=== PATIENT | male | born 1955 | race Caucasian/White ===

== ENCOUNTER → 2019-01-20 | Outpatient (CLI) | payer OTHER ==
[~2019-01-20] MED LIST: ALFUZOSIN HCL10 MG PO; AVODART0.5 MG PO
--- NOTE | 2019-01-20 09:20 | Diagnostic Imaging Report ---
MRI of the left shoulder without contrast. History: Shoulder pain. Decreased range of motion. Rotator cuff tear. Pain not responding to conservative management Comparison: None Technique: Coronal PD FS, sagital PD FS, and axial PD and PD FS. Findings: Rotator cuff: Rotator cuff tendinosis with midsubstance degeneration and mild articular sided fraying/partial tearing involving the anterior fibers of the supraspinatus and infraspinatus tendons at the humeral insertion site. Additionally, there is subscapularis tendinosis. The teres minor tendon is intact. There are reactive changes in the superior humerus. Osseous acromion complex: Type II acromion with mild lateral downsloping. Mild degenerative arthrosis at the acromioclavicular joint with mild narrowing of the supraspinatus tendon outlet. Glenohumeral joint: Superior labral tear extending from anterior to posterior. Additionally, there is tearing of the posterior inferior labrum with an adjacent 1.5 cm lobulated paralabral cyst best seen on coronal image 17. The articular cartilage surfaces are thinned with regions of fraying and fissuring. Small peripheral marginal osteophytes. Effusion/synovitis in the rotator interval and subcoracoid space with 0.8 cm calcified loose body best seen on sagittal image 17. The humeral head is well-seated in the glenoid fossa. Biceps tendon: Intra-articular biceps tendinosis with draining at the biceps anchor. Other findings: Negative for muscle denervation or osseous fracture. Impression: Rotator cuff tendinosis with midsubstance degeneration and mild articular sided fraying/partial tearing involving the anterior fibers of the supraspinatus and infraspinatus tendons at the humeral insertion site. Superior labral tear extending from anterior to posterior. Additionally, there is tearing of the posterior inferior labrum with an adjacent 1.5 cm lobulated paralabral cyst. Effusion/synovitis in the rotator interval and subcoracoid space with 0.8 cm calcified loose body Intra-articular biceps tendinosis with draining at the biceps anchor. Signed by: Dr. Maciej Watts M.D. on 01/20/2019 9:17 AM
== END ==
LOC: MRI 08:08
PROVIDERS: ATTEND Specialist
DX: M75.102 Unspecified rotator cuff tear or rupture of left shoulder, not specified as traumatic (principal)

== ENCOUNTER → 2019-02-02 | Day surgery (SDC) | payer OTHER ==
[~2019-02-02] MED LIST changes: +ACETAMINOPHEN 1000 MG/100 ML IV ONE; +CEFAZOLIN SOD 1 GM/NS 50ML 100 ML IV ONE; +DESFLURANE 240 ML BTL INH ONE; +EPHEDRINE SULFATE INJ 50 MG/10 ML SYR ONE; +EPINEPHRINE 1 MG/ML 30ML VIAL ONE; +FENTANYL CITRATE/PF 100MCG/2 ML INJ ONE; +GLYCOPYRROLATE INJ 1MG/ 5 ML SYR ONE; +LIDOCAINE 2% /EPINEPHRINE 20 ML SDV INJ ONE; +LIDOCAINE HCL 2% LOCAL INJ 5 ML SDV VIAL INJ ONE; +MIDAZOLAM HCL 2 MG/2 ML VIAL ONE; +NEOSTIGMINE 5 MG/5ML SYR ONE; +ONDANSETRON HCL INJ 2MG/ML 2ML 2 MG/ML VIAL ONE; +PROPOFOL IV EMULSION 10 MG/ML 20 ML VIAL ONE; +ROCURONIUM BROMIDE 10 MG/ML 5ML VIAL ONE; +ROPIVACAINE 0.5% 5 MG/ML 30 ML SDV ONE
--- OUTSIDE RECORDS SUMMARY | 2019-02-02 05:31 | XMS REPORT | Clinical Summary ---
Author Author [facility] Organization [facility] Address Unknown Phone Unavailable Care Team Providers Care Systems Specialist Name Role Phone Asked, No Pcp PCP Unavailable Allergies No Known Allergies Medications Not on file Active Problems Not on file Social History Date Tobacco Use Types Packs/Day Years Used Never Assessed Sex Assigned at Date Recorded Not on file Industry Job Start Date Occupation Not on file Not on file Not on file Travel End Travel History Travel Start No recent travel history available. Last Filed Vital Signs Not on file Plan of Treatment Health Maintenance Due Date Last Done Comments COLONOSCOPY SCREENING 2004 SHINGLES VACCINES (#1) 2004 INFLUENZA VACCINE 01/27/2019 Results Not on fileafter 02/01/2018 Insurance Type Payer Benefit Subscriber ID Effective Phone Address Plan / Dates Group PPO BCBS BCBS OUT xxxxxxxxxxxx 2015-P OF STATE resent [phone] (Work) Advance Directives Patient has advance care planning documents on file. For more information, farrah e contact: Igor Buchanan [address] [place] [address]
--- OUTSIDE RECORDS SUMMARY | 2019-02-02 05:31 | XMS REPORT ---
Author [facility] Address Unknown Phone Unavailable Care Team Providers Care Banquet Set Up Person Name Role Phone VIRGINIA HAYNES Unavailable Unavailable Problems This patient has no known problems. Allergies, Adverse Reactions, Alerts This patient has no known allergies or adverse reactions. Medications This patient has no known medications. Results Test Description Test Time Test Comments Text Results Atomic Results Result Comments MRI SHOULDER LEFT WO 2019-01-20 09:11:00 [place] [address] Patient Name: YONNY GAUTAM MR #: [id number] : 1955 Age/Sex: 63/M Req #: [id number] Adm Physician: Ordered by: VIRGINIA HAYNES MD Report #: [id number] Location: MRI Room/Bed: Procedure: [id number] MRI/MRI SHOULDER LEFT WO Exam Date: Exam Time: REPORT STATUS: Signed MRI of the left shoulder without contrast. History: Shoulder pain. Decreased range of motion. Rotator cuff tear. Pain not responding to conservative management Comparison: None Technique: Coronal PD FS, sagital PD FS, and axial PD and PD FS. Findings: Rotator cuff: Rotator cuff tendinosis with midsubstance degeneration and mild articular sided fraying/partial tearing involving the anterior fibers of the supraspinatus and infraspinatus tendons at the humeral insertion site. Additionally, there is subscapularis tendinosis. The teres minor tendon is intact. There are reactive changes in the superior humerus. Osseous acromion complex: Type II acromion with mild lateral downsloping. Mild degenerative arthrosis at the acromioclavicular joint with mild narrowing of the supraspinatus tendon outlet. Glenohumeral joint: Superior labral tear extending from anterior to posterior. Additionally, there is tearing of the posterior inferior labrum with an adjacent 1.5 cm lobulated paralabral cyst best seen on coronal image 17. The articular cartilage surfaces are thinned with regions of fraying and fissuring. Small peripheral marginal osteophytes. Effusion/synovitis in the rotator interval and subcoracoid space with 0.8 cm calcified loose body best seen on sagittal image 17. The humeral head is well-seated in the glenoid fossa. Biceps tendon: Intra-articular biceps tendinosis with draining at the biceps anchor. Other findings: Negative for muscle denervation or osseous fracture. Impression: Rotator cuff tendinosis with midsubstance degeneration and mild articular sided fraying/partial tearing involving the anterior fibers of the supraspinatus and infraspinatus tendons at the humeral insertion site. Superior labral tear extending from anterior to posterior. Additionally, there is tearing of the posterior inferior labrum with an adjacent 1.5 cm lobulated paralabral cyst. Effusion/synovitis in the rotator interval and subcoracoid space with 0.8 cm calcified loose body Intra-articular biceps tendinosis with draining at the biceps anchor. Signed by: Dr. Maciej Watts M.D. on 01/20/2019 9:17 AM Dictated By: MACIEJ WATTS MD, MD 6 Transcribed By: MARIKA on 01/20/19916 COPY TO: VIRGINIA HAYNES MD
[2019-02-02 10:40] VITALS: BP 115/76
--- NOTE | 2019-02-04 00:13 | Operative Report ---
DATE OF PROCEDURE: 02/02/2019 SURGEON: Wilfrido Pulido MD PREOPERATIVE DIAGNOSES: Left shoulder labral tear and left shoulder AC joint arthritis. POSTOPERATIVE DIAGNOSES: Left shoulder labral tear, left shoulder AC joint arthritis, left shoulder synovitis, left shoulder partial rotator cuff tear, and left shoulder chondromalacia of the glenoid. OPERATION AND PROCEDURE PERFORMED: The patient underwent a left shoulder exam under anesthesia, left shoulder arthroscopy, left shoulder arthroscopic debridement of synovitis, left shoulder arthroscopic debridement of a partial rotator cuff tear, left shoulder debridement of the labrum and arthroscopic biceps tenodesis, arthroscopic subacromial decompression and acromioplasty, and arthroscopic chondroplasty of the glenoid. MOBILE APPLICATION TESTER: NAHUN Edouard ANESTHESIA: Regional block plus general anesthesia. IV FLUIDS: Per the anesthesia record BRIEF DESCRIPTION OF THE PATIENT'S OPERATIVE PROCEDURE: Mr. Bruno was taken to the operating room, placed in supine position on the operating table. Following induction of general anesthesia as well as endotracheal intubation, the patient's left upper extremity was examined under anesthesia. The patient was found to have full passive range of motion of the left shoulder joint. There is no evidence of instability. The patient's left shoulder and upper extremity were prepped and draped in standard surgical fashion. Standard posterolateral and anterior portals were created without difficulty. The scope was placed within the shoulder joint atraumatically. Examination of the glenohumeral articulation demonstrated chondromalacia of the central and anterior inferior aspects of the glenoid. There were no loose bodies in the shoulder joint. There was a partial-thickness rotator cuff tear along the articular surface in the region of the insertion of the supraspinatus tendon. This tear comprised less than 50% of the tendon width. Examination of biceps tendon, found that it was intact. The patient had a diffuse macerated labral tear including severe tearing of the anterior labrum. A probe was placed in the shoulder joint through the anterior portal and the labral tear was found to be unfixable. The shaver was placed in the shoulder joint and the labral tear was debrided. A chondroplasty of the glenoid was performed at this time. There was also diffuse synovitis of the shoulder joint and this was debrided. The patient's rotator cuff injury was also debrided to a border of healthy tissue. The rotator interval was debrided in preparation for an all-inside biceps tenodesis. Sutures were shuttled through the biceps tendon and the biceps tendon was then released from its insertion site into the superior rim of the glenoid. The biceps was then drawn into the rotator interval. The shoulder was inflated with sterile normal saline. The scope was placed in the subacromial space and significant bursal tissue was encountered. A lateral portal was created through an outside in technique. A bursectomy was performed. The bursal surface of the rotator cuff was found to be intact. The sutures were identified in the anterior aspect of the shoulder. The sutures were drawn through the lateral portal and the biceps tenodesis was completed over the rotator interval. There was a markedly downward sloping acromion. The coracoacromial ligament was resected. An aggressive acromioplasty was performed. The shoulder was inflated with sterile normal saline. The portal sites were closed and dressed sterilely. The patient was provided a shoulder immobilizer, awakened, and taken to the postanesthesia care in stable condition. Lorene Wong acted as a first coat operator for this case and was necessary for both prepping and draping the patient as well as positioning the arm and the passage of suture that allowed this case to be successful. MD NIGEL Gamble/JESSICA /[id number]
== END | disposition home or self-care (01) ==
LOC: OR 05:20
PROVIDERS: ATTEND Specialist
DX: S46.092A Other injury of muscle(s) and tendon(s) of the rotator cuff of left shoulder, initial encounter (principal); S46.212A Strain of muscle, fascia and tendon of other parts of biceps, left arm, initial encounter; S43.432A Superior glenoid labrum lesion of left shoulder, initial encounter; Z87.442 Personal history of urinary calculi; Z85.841 Personal history of malignant neoplasm of brain; M65.812 Other synovitis and tenosynovitis, left shoulder; M94.212 Chondromalacia, left shoulder
CPT/HCPCS: 93005; J0690; J2001; J2250; J2405; J2795; J3010